=== PATIENT | female | born 1925 | race Caucasian/White ===

== ENCOUNTER → 2016-03-31 | Outpatient (CLI) | payer OTHER ==
[~2016-03-31] MED LIST: ACET325T96 PO; ASPI81TA28 PO; ATOR-22 PO; CHOL100010 PO; LISI-725 PO; LORA-741 PO; MCRK20 PO; NIFE90TA27 PO
--- NOTE | 2016-04-05 09:07 | CODING QUERY NO DIAGNOSIS ---
: 1925 TREATMENT RENDERED WITHOUT A DIAGNOSIS To promote full compliance with coding requirements relating to patient care, physician participation is requested in all cases of multicultural services librarian uncertainty. Please assist us with providing a diagnosis/symptom for the test(s) below: A diagnosis/symptom was not documented on your Order. A valid diagnosis/symptom is required to bill all insurances. Please remember that we are unable to code a diagnosis of rule out, probable, possible, questionable, or suspected. Tests that require a diagnosis: DOS: 03/31/16 * Influenza Virus A or B Antigen DIAGNOSIS: Provider Signature: Date: Thank you Gricelda Lo[facility] Information Management Once completed, please kindly fax back to [phone] For questions please call [phone]
== END | disposition home or self-care (01) ==
LOC: C.LABSPEC 16:45
PROVIDERS: ATTEND Internal Medicine
DX: Z00.00 Encounter for general adult medical examination without abnormal findings (principal)

== ENCOUNTER 2016-04-29 10:19 | Emergency (ER) | payer OTHER ==
[~2016-04-29] VITALS: Ht 147.3 cm; Wt 58.0 kg
[~2016-04-29 10:19] MED LIST changes: -LORA-741 PO
[2016-04-29 10:25] VITALS: TEMP 36.5; Ht 147.3 cm; Wt 58.0 kg
[2016-04-29] MEDS ORDERED: SODIUM CHLORIDE 0.9% 500ML 500 ML IV STA (10:41)
[2016-04-29 10:58] VITALS: O2SAT 96
[2016-04-29] MEDS ORDERED: LORA-741 PO (10:59)
[2016-04-29 11:18] LABS: BASO % 0.3 %; BASO ABS # 0.02 K/uL (0-0.2); COMPLETE YES; EOS % 0.9 %; HEMATOCRIT 37.4 % (37-47); IG% 0.3 %; LYMPH % 19.3 %; LYMPH ABS # 1.44 K/uL (1.2-3.4); MEAN CELL VOLUME 90.6 fL (80-100); MEAN CORPUSCULAR HEMOGLOBIN 29.3 pg (25-34); MEAN CORPUSCULAR HGB CONC 32.4 g/dl (32-36); MEAN PLATELET VOLUME 9.5 fL (7.4-10.4); MONO % 6.2 %; PLATELET COUNT 280 K/uL (130-400); RED BLOOD COUNT 4.13 M/uL (4.2-5.4); WHITE BLOOD COUNT 7.46 K/uL (4.8-10.8)
[2016-04-29 11:18] LABS: URINE APPEARANCE CLEAR (CLEAR); URINE BILIRUBIN NEG (NEG); URINE COLOR YELLOW; URINE NITRITE NEG (NEG); URINE SPECIFIC GRAVITY 1.007 (1.000-1.030); UROBILINOGEN NEG (NEG); ZZURINE CULT IF INDIC CATH YES
[2016-04-29 11:19] LABS: MANUAL MICROSCOPIC REQUIRED? NO; REVIEW REQ? NO
--- NOTE | 2016-04-29 11:26 | DIAGNOSTIC IMAGING REPORT ---
HEAD CT NONCONTRAST CT DOSE: 537.48 mGy.cm HISTORY: Mental status change EVALUATE ALTERED MENTAL STATUS TECHNIQUE: Multiaxial CT images of the head were performed without the use of intravenous contrast. Comparison: None. Findings: The paranasal sinuses and mastoid air cells are clear. The calvarium and skull base are intact. The ventricles and sulci are within normal limits. There is no mass, hematoma, midline shift, or acute infarct. Generalized moderate atrophy. Considerable chronic small vessel change. Impression: Age-related change. No acute process. Electronically signed by: Riley Carrion M.D. 04/29/2016 11:24 AM Dictated Date/Time: 04/29/2016 11:24 AM
[2016-04-29 11:27] LABS: INR 1.1 (0.9-1.1); PARTIAL THROMBOPLASTIN RATIO 0.9; PROTHROMBIN TIME (PATIENT) 11.5 SECONDS (9.0-12.0)
[2016-04-29 12:04] VITALS: O2SAT 95
[2016-04-29 12:05] LABS: BUN/CREATININE RATIO 10.9 (10-20); CALCIUM 8.7 mg/dl (8.5-10.1); CREATININE 0.81 mg/dl (0.60-1.20); MAGNESIUM 2.1 mg/dl (1.8-2.4); POTASSIUM 3.3 mmol/L (3.5-5.1)
--- NOTE | 2016-04-29 12:08 | DIAGNOSTIC IMAGING REPORT ---
RIGHT WRIST W/NAVICULAR MIN 3 VIEWS CLINICAL HISTORY: R WRIST SWELLING Right trauma. Pain. COMPARISON: None. DISCUSSION: Generalized degenerative change throughout. Nondisplaced transverse cortical fracture distal radius. Cortical fracture ulnar styloid. No evidence dislocation. There is no evidence for soft tissue swelling. IMPRESSION: 1. Transverse nondisplaced cortical fracture distal radius. 2. Small cortical avulsion ulnar styloid. 3. Degenerative change. Electronically signed by: Riley Carrion M.D. 04/29/2016 12:06 PM Dictated Date/Time: 04/29/2016 12:06 PM
--- NOTE | 2016-04-29 12:10 | DIAGNOSTIC IMAGING REPORT ---
CHEST 2 VIEWS ROUTINE CLINICAL HISTORY: AMS dyspnea COMPARISON STUDY: 01/12/2011 FINDINGS: Mild cardiomegaly. Moderate prominence pulmonary vasculature. Trace atelectasis left base. IMPRESSION: Developing congestive heart failure Electronically signed by: Riley Carrion M.D. 04/29/2016 12:09 PM Dictated Date/Time: 04/29/2016 12:08 PM
--- NOTE | 2016-04-29 12:10 | DIAGNOSTIC IMAGING REPORT ---
RIGHT SHOULDER MIN 2 VIEWS ROUTINE CLINICAL HISTORY: R SHOULDER ABRASION/PAIN Right trauma COMPARISON: None. DISCUSSION: Mild generalized degenerative change. No well-defined acute bony abnormality. There is no evidence for soft tissue swelling. IMPRESSION: No acute bony abnormality. Mild to moderate degenerative change. Electronically signed by: Riley Carrion M.D. 04/29/2016 12:08 PM Dictated Date/Time: 04/29/2016 12:07 PM
[2016-04-29 12:13] LABS: PHOSPHORUS 2.8 mg/dl (2.5-4.9); THYROID STIMULATING HORMONE 1.69 uIu/ml (0.300-4.500)
[2016-04-29 12:51] LABS: BENZODIAZEPINE, URINE NEG (NEG); COCAINE,URINE NEG (NEG); PHENCYCLIDINE, URINE NEG (NEG)
[2016-04-29 14:40] VITALS: PULSE 103
--- NOTE | 2016-04-29 14:49 | EMERGENCY ROOM VISIT NOTE ---
History First contact with patient: 10:30 Chief Complaint: FALL Stated Complaint: WRIST IS SWOLLEN/PAIN, SKIN TEAR ON SHOULDER History of Present Illness The patient is a 89 year old female who presents to the Emergency Room via ambulance from [facility] for evaluation of altered mental status and fall. According to nursing staff, they found her sitting on the floor in her room this morning. Nursing staff reported that she seemed more confused than usual last night. The patient has a history of Alzheimer's dementia. They found swelling of the patient's right wrist, and an abrasion to the right shoulder. The patient did not appear to be in any acute distress. The daughter presents with the patient as well. Review of Systems Review of systems could not be performed because of altered mental status and dementia Past Medical/Surgical History Medical Problems: (1) Alzheimer's Disease With Late Onset (2) Hypertension Nos (3) Hypokalemia (4) Osteoporosis Nos (5) Vitamin D Deficiency Nos Family History FH: heart disease FH: hypertension Social History Smoking Status: Never Smoker Alcohol Use: none Marital Status: Housing Status: other (personal usp) Occupation Status: retired Current/Historical Medications Scheduled Lorazepam (Ativan), 0.5 MG PO DIRECTED Scheduled PRN Acetaminophen Tab (Tylenol), 650 MG PO Q6 PRN for Pain Allergies Coded Allergies: No Known Allergies (Unverified , 04/29/16) Physical Exam Vital Signs Date Time Temp Pulse Resp B/P Pulse Ox O2 Delivery O2 Flow Rate FiO2 04/29/16 14:40 103 04/29/16 13:44 79 18 159/69 04/29/16 12:04 75 18 149/71 95 Room Air 04/29/16 10:58 96 Room Air 04/29/16 10:47 71 04/29/16 10:25 36.5 87 16 173/83 95 Room Air Physical Exam CONSTITUTIONAL: Healthy and well nourished appearing female. The patient does attempt to communicate when asked questions, but with inappropriate answers. HEENT: Normocephalic, atraumatic. Pupils equal, round and reactive. No epistaxis, hemotympanum, subconjunctival hemorrhage, raccoon's eyes or Almanza sign. NECK: Full active range of motion without discomfort. RESPIRATORY: Clear to auscultation bilaterally with no wheezing, crackles, rhonchi or stridor. CARDIOVASCULAR: Regular rate and rhythm with no murmurs, rubs or gallops. GASTROINTESTINAL: Bowel sounds present in all quadrants. Soft and nontender to palpation. MUSCULOSKELETAL: Examination shows edema and ecchymosis of the right wrist. No open wounds noted. The patient does not appear to have any discomfort with movement of the elbow or shoulder. There is an abrasion to the right shoulder. No obvious discomfort with palpation of the ribs or thoracolumbar spine. Negative logroll. Pelvis stable with rock. No obvious discomfort with range of motion of the knees or ankles. Distal pulses are intact. INTEGUMENTARY: No rash or other significant dermatologic conditions noted. NEUROLOGIC: No focal neurologic deficits noted. Medical Decision & Procedures ER Provider Diagnostic Interpretation: My interpretation of an ECG shows a sinus rhythm of 74 bpm with T-wave inversion in the lateral leads. No ST elevation noted. Comparison with a prior ECG dated 06/03/06 shows no T-wave inversion in lateral leads. My interpretation of a two-view chest x-ray shows cardiomegaly and pattern consistent with acute congestive heart failure. My interpretation of a right shoulder x-ray does not show any acute fractures or dislocation. My interpretation of a right wrist x-ray shows a nondisplaced cortical distal radius fracture. Noncontrast CT of the head does not show any acute intracranial bleed. Radiologist reports were also reviewed. Laboratory Results 04/29/16 11:00 Red Blood Count 4.13, Mean Corpuscular Volume 90.6, Mean Corpuscular Hemoglobin 29.3, Mean Corpuscular Hemoglobin Concent 32.4, Mean Platelet Volume 9.5, Neutrophils (%) (Auto) 73.0, Lymphocytes (%) (Auto) 19.3, Monocytes (%) (Auto) 6.2, Eosinophils (%) (Auto) 0.9, Basophils (%) (Auto) 0.3, Neutrophils # (Auto) 5.45, Lymphocytes # (Auto) 1.44, Monocytes # (Auto) 0.46, Eosinophils # (Auto) 0.07, Basophils # (Auto) 0.02 04/29/16 11:00 Test 04/29/16 10:55 04/29/16 11:00 04/29/16 13:11 Urine Color YELLOW Urine Appearance CLEAR (CLEAR) Urine pH 7.0 (4.5-7.5) Urine Specific Devers 1.007 (1.000-1.030) Urine Protein NEG (NEG) Urine Glucose (UA) NEG (NEG) Urine Ketones NEG (NEG) Urine Occult Blood NEG (NEG) Urine Nitrite NEG (NEG) Urine Bilirubin NEG (NEG) Urine Urobilinogen NEG (NEG) Urine Leukocyte Esterase NEG (NEG) Urine WBC (Auto) 0 /hpf (0-5) Urine RBC (Auto) 0-4 /hpf (0-4) Urine Hyaline Casts (Auto) 1-5 /lpf (0-5) Urine Epithelial Cells (Auto) 5-10 /lpf (0-5) Urine Bacteria (Auto) 1+ (NEG) Urine Opiates Screen NEG (NEG) Urine Methadone, Qualitative NEG (NEG) Urine Barbiturates NEG (NEG) Urine Phencyclidine (PCP) Level NEG (NEG) Ur Amphetamine/Methamphetamine NEG (NEG) MDMA (Ecstasy) Screen NEG (NEG) Urine Benzodiazepines Screen NEG (NEG) Urine Cocaine Metabolite NEG (NEG) Urine Marijuana (THC) NEG (NEG) White Blood Count 7.46 K/uL (4.8-10.8) Red Blood Count 4.13 M/uL (4.2-5.4) Hemoglobin 12.1 g/dL (12.0-16.0) Hematocrit 37.4 % (37-47) Mean Corpuscular Volume 90.6 fL (80-100) Mean Corpuscular Hemoglobin 29.3 pg (25-34) Mean Corpuscular Hemoglobin Concent 32.4 g/dl (32-36) Platelet Count 280 K/uL (130-400) Mean Platelet Volume 9.5 fL (7.4-10.4) Neutrophils (%) (Auto) 73.0 % Lymphocytes (%) (Auto) 19.3 % Monocytes (%) (Auto) 6.2 % Eosinophils (%) (Auto) 0.9 % Basophils (%) (Auto) 0.3 % Neutrophils # (Auto) 5.45 K/uL (1.4-6.5) Lymphocytes # (Auto) 1.44 K/uL (1.2-3.4) Monocytes # (Auto) 0.46 K/uL (0.11-0.59) Eosinophils # (Auto) 0.07 K/uL (0-0.5) Basophils # (Auto) 0.02 K/uL (0-0.2) RDW Standard Deviation 44.0 fL (36.4-46.3) RDW Coefficient of Variation 13.3 % (11.5-14.5) Immature Granulocyte % (Auto) 0.3 % Immature Granulocyte # (Auto) 0.02 K/uL (0.00-0.02) Prothrombin Time 11.5 SECONDS (9.0-12.0) Prothromb Time International Ratio 1.1 (0.9-1.1) Activated Partial Thromboplast Time 24.4 SECONDS (21.0-31.0) Partial Thromboplastin Ratio 0.9 Anion Gap 9.0 mmol/L (3-11) Est Creatinine Clear Calc Drug Dose 36.2 ml/min Estimated GFR () 75.2 Estimated GFR (Non- 64.8 BUN/Creatinine Ratio 10.9 (10-20) Calcium Level 8.7 mg/dl (8.5-10.1) Phosphorus Level 2.8 mg/dl (2.5-4.9) Magnesium Level 2.1 mg/dl (1.8-2.4) Total Bilirubin 0.3 mg/dl (0.2-1) Direct Bilirubin 0.1 mg/dl (0-0.2) Aspartate Amino Transf (AST/SGOT) 12 U/L (15-37) Alanine Aminotransferase (ALT/SGPT) 12 U/L (12-78) Alkaline Phosphatase 62 U/L (45-117) Total Creatine Kinase 40 U/L (26-192) Total Protein 7.2 gm/dl (6.4-8.2) Albumin 3.2 gm/dl (3.4-5.0) Thyroid Stimulating Hormone (TSH) 1.690 uIu/ml (0.300-4.500) Troponin I 0.044 ng/ml (0-0.045) Pro-B-Type Natriuretic Peptide 6983 pg/ml (0-1800) The above labs were reviewed. BNP is elevated at 6983. Troponin is normal. Urinalysis shows no evidence for infection. Potassium is 3.3. Remaining labs are otherwise grossly normal. Medications Administered Medications (Trade) Dose Ordered Sig/Emely Route Start Time Stop Time Status Last Admin Dose Admin Sodium Chloride (Nss 500ml) 500 ml @ 999 mls/hr Q31M STAT IV 2/4/17 10:41 04/29/16 11:11 DC 04/29/16 10:41 999 MLS/HR ED Course Patient history and physical exam were performed. Nurse's notes were reviewed. The patient does not appear in any acute distress on initial exam. Vital signs were reviewed, showing an elevated blood pressure 173/83. She is afebrile with an O2 saturation of 95% on room air. Heart rate is also normal. ECG and two-view chest x-ray shows inverted T waves in lateral leads, and congestive heart failure on chest x-ray. Noncontrast CT of the head does not show any acute bleed. X-rays of the right shoulder were also normal. X-rays of the right wrist shows a transverse distal radius fracture. Review of labs shows an elevated BNP. Troponin is normal. Otherwise remaining labs were also normal. The case was also discussed with Dr. Krishna, ED attending physician, who agrees with workup. He also briefly spoke with the patient's daughter regarding several different disposition possibilities. I also spoke with the patient's daughter, Catherine, who is also medical power of document review attorney. She voices concern that the patient is currently under hospice because of her progressively worsening dementia and failure to thrive. She reports that the family takes turns going to her personal usp and eating with her to remind her to eat, which has steadily declined recently. I did explain the nature of her injuries and findings, including her radius fracture which will be referred to orthopedics for further management. I also discussed concern for acute versus chronic congestive heart failure. I did offer hospitalist evaluation, however the sister decided that they would decline this option. Both sisters did speak together on the phone, and they elected to defer hospitalist evaluation or admission. I did provide contact information for [facility] and Dr. Alcantara, fender finisher, if they wish to further discuss her heart failure with him. The family was grateful and happy with the decision to take her back to [facility]. A volar Ortho-Glass splint was applied to the right wrist prior to discharge. Medical Decision Patient presents to the emergency department for evaluation of injuries after assuming a fall in her room. She does have a right wrist fracture which further supports a history of a fall. Her workup today is suggestive of acute versus chronic congestive heart failure. Clinically the patient does not appear in any acute distress. She does have elevated T waves on ECG, but no increased troponin. At this point, it is uncertain why the patient fell, whether it be a cardiac incident or mechanical fall. Impression Primary Impression: Fracture of right distal radius Additional Impressions: CHF (congestive heart failure) Dementia Departure Information Referrals [facility] (PCP) Patient Instructions My [facility] Problem Qualifiers Primary Impression: Fracture of right distal radius Encounter type: initial encounter Fracture type: closed Fracture morphology : unspecified fracture morphology Qualified Codes: S52.501A - Unspecified fracture of the lower end of right radius, initial encounter for closed fracture Additional Impressions: CHF (congestive heart failure) Congestive heart failure type: unspecified congestive heart failure type Congestive heart failure chronicity: unspecified congestive heart failure chronicity Qualified Codes: I50.9 - Heart failure, unspecified Dementia Dementia type: Alzheimer's disease Alzheimer's disease onset: late-onset Dementia behavioral disturbance: with behavioral disturbance Qualified Codes: G30.1 - Alzheimer's disease with late onset; F02.81 - Dementia in other diseases classified elsewhere with behavioral disturbance
[2016-04-29 14:57] VITALS: BP 154/78
--- NOTE | 2016-04-29 15:27 | EMERGENCY ROOM VISIT NOTE ---
ED Visit Note First contact with patient: 10:30 I have personally evaluated this patient examined her and reviewed the pertinent labs and data. I have discussed the case with Carlos Pendleton, the physician printing bindery assistant and agree with the plan. Please refer to the PA note. This patient comes in as described above. She has severe dementia and lives in a fpc. She was found on the ground and her only complaint seems to be wrist pain. She has nondisplaced fracture seen on x-ray. Her chest x-ray suggests that she may some mild CHF and her BNP is elevated however clinically she has no peripheral edema or crackles and appears in no distress. EKG has no ST segment elevations,. She has some lateral T-wave inversions which are new compared to EKG done 10 years ago. On my exam, she is resting comfortably. We did talk to the family and they strongly desired take her back home to have further wish to do any further cardiac workup today. We did offer admission but they declined think this is reasonable given her severe dementia. I recommended that they follow up with her doctor this week and return if any new problems or concerns.
== END 2016-04-29 14:58 | disposition home or self-care (01) ==
LOC: C.EDB 10:21 → C.EDC 14:58
DX: S52.501A Unspecified fracture of the lower end of right radius, initial encounter for closed fracture (principal); I50.9 Heart failure, unspecified; G30.9 Alzheimer's disease, unspecified; F02.80 Dementia in other diseases classified elsewhere, unspecified severity, without behavioral disturbance, psychotic disturbance, mood disturbance, and anxiety; I10 Essential (primary) hypertension; X58.XXXA Exposure to other specified factors, initial encounter